=== PATIENT | male | born 1995 | race Caucasian/White ===

== ENCOUNTER 2019-07-29 20:37 | Emergency (ER) | payer BC ==
[~2019-07-29] VITALS: Ht 175.3 cm; Wt 117.9 kg
== END 2019-07-29 23:46 | disposition home or self-care (01) ==
LOC: ED 20:37
DX: G40.909 Epilepsy, unspecified, not intractable, without status epilepticus (principal)
CPT/HCPCS: 80048; 80053; 81001; 85025; 96360; 99284-25; J7030